=== PATIENT | male | born 1990 | race Caucasian/White ===

== ENCOUNTER 2020-12-29 00:06 | Emergency (ER) | payer MEDICARE, MEDICAID ==
[~2020-12-29] VITALS: Ht 175.3 cm; Wt 35.8 kg
[2020-12-29] MEDS ORDERED: ONDANSETRON HCL 4 MG/2 ML VIAL IV ONE ×2 (00:30→01:30)
[2020-12-29] MEDS ORDERED: MORPHINE SULFATE 4 MG/ML SYR/VIAL IV ONE ×2 (00:30→03:30)
[2020-12-29] MEDS ORDERED: SODIUM CHLORIDE 0.9% 1,000 ML IV ONE ×2 (00:30→02:00)
[2020-12-29 01:20] LABS: Basophils # (auto) 0.1 10 ^3/uL (0-0.2); Basophils % (auto) 0.5 % (0.0-2.0); Eosinophils # (auto) 0 10 ^3/uL (0-0.8); Eosinophils % (auto) 0.1 % (0.0-7.0); Hematocrit 34.8 % (41.0-53.0); Hemoglobin 10.9 g/dL (13.5-17.5); Lymphocytes # (auto) 1.4 10 ^3/uL (0.4-5.4); Lymphocytes % (auto) 9.8 % (10.0-50.0); Mean Corpuscular Hemoglobin 22.8 pg (28.0-32.0); Mean Corpuscular Hgb Conc. 31.3 g/dL (32.0-36.0); Mean Corpuscular Volume 72.8 fL (80.0-100.0); Monocytes # (auto) 0.6 10 ^3/uL (0-1.3); Monocytes % (auto) 3.9 % (0.0-12.0); Neutrophils # (auto) 12.1 10 ^3/uL (1.6-8.6); Neutrophils % (auto) 85.7 % (37.0-80.0); Nucleated Red Blood Cells % 0.1 %; Red Blood Cells 4.77 10^6/uL (4.5-5.90); Red Cell Distribution Width 19.1 % (11.8-14.3); White Blood Cell 14.2 10^3/uL (4.4-10.8)
[2020-12-29] MEDS ORDERED: VANCOMYCIN PER PHARMACY 0 MG IV SCH (01:30)
[2020-12-29] MEDS ORDERED: PIPERACILLIN-TAZOB 3.375GM 100 ML IV ONE (01:30)
[2020-12-29 01:35] LABS: Albumin 2.3 g/dL (3.4-5.0); Amylase 52 U/L (25-115); Anion Gap 12 (5-15); BUN/Creatinine Ratio 44.2; Blood Urea Nitrogen 38 mg/dL (7-18); Calcium 8.8 mg/dL (8.5-10.1); Carbon Dioxide 37 mmol/L (21-32); Chloride 81 mmol/L (98-107); GFR African American 135 mL/min; GFR Non-African American 112 mL/min; Glucose 121 mg/dL (74-106); Lipase 146 U/L (73-393); Magnesium 2.6 mg/dL (1.6-2.6); Sodium 130 mmol/L (136-145)
[2020-12-29 01:37] LABS: Lactic Acid w/Reflex 2.5 mmol/L (0.4-2.0)
[2020-12-29 01:40] LABS: INR 1.13 (0.9-1.15); Partial Thromboplastin Time 28.4 sec (23.0-31.2)
[2020-12-29 01:54] LABS: Alanine Aminotransferase 13 U/L (16-61); Alkaline Phosphatase 339 U/L (45-117); Aspartate Aminotransferase 12 U/L (15-37); Bilirubin, Total 0.3 mg/dL (0.2-1.0); Total Protein 9.7 g/dL (6.4-8.2)
[2020-12-29 01:58] LABS: Potassium 2.8 mmol/L (3.5-5.1)
[2020-12-29] MEDS ORDERED: POTASSIUM CHL 20MEQ/100ML 100 ML IV ONE (02:00)
[2020-12-29] MEDS ORDERED: metroNIDAZOLE 500MG/100ML 100 ML IV ONE (03:00)
[2020-12-29] MEDS ORDERED: D5W/SOD CHLO 0.9% 1,000 ML IV ONE (03:30)
[2020-12-29] MEDS ORDERED: VANCOMYCIN 1GM/250ML 250 ML IV ONE (03:30)
[2020-12-29 05:47] VITALS: BP 109/77
== END 2020-12-29 06:19 | disposition short-term general hospital (02) ==
LOC: EDBD 00:06 → ER 00:09
DX: K90.9 Intestinal malabsorption, unspecified (principal); J18.1 Lobar pneumonia, unspecified organism; K26.7 Chronic duodenal ulcer without hemorrhage or perforation; Z20.822 Contact with and (suspected) exposure to COVID-19
CPT/HCPCS: 36415; 36600; 71045; 71250; 74176; 80053; 82150; 82805; 83605; 83690; 83735; 84484; 85025; 85379; 85610; 85730; 87040; 87426; 96361; 96365; 96367; 96375; 96376; 99285; C9803; J2270; J2405; J2543; J3370; J3480; J3490; J7030; U0003; 93005